=== PATIENT | female | born 1995 | race Caucasian/White ===

== ENCOUNTER 2021-06-16 19:14 | Emergency (ER) | payer BC ==
[~2021-06-16] VITALS: Ht 162.6 cm; Wt 77.1 kg
[2021-06-16 19:34] VITALS: BP 131/75
--- NOTE | 2021-06-16 19:37 | NUR ---
TO LOBBY A/W BED AMBULATORY
[2021-06-16 20:05] VITALS: BP 131/75
[2021-06-16] MEDS ORDERED: PROM118S5 PO (20:24)
[2021-06-16] MEDS ORDERED: AZIT250T4 PO (20:24)
[2021-06-16] MEDS ORDERED: PRED20TA5 PO (20:24)
--- NOTE | 2021-06-16 20:27 | NUR ---
Patient discharged with v/s stable. Written and verbal after care instructions ABOUT COUGH AND ACUTE BRONCHITIS given and explained. Patient alert, oriented and verbalized understanding of instructions. Ambulatory with steady gait. All questions addressed prior to discharge. ID band removed. Patient advised to follow up with PMD. Rx of ZITHROMAX, PREDNISONE, AND PROMETHAZINE DM SYRUP given. Patient educated on indication of medication including possible reaction and side effects. Opportunity to ask questions provided and answered.
== END 2021-06-16 20:27 | disposition home or self-care (01) ==
LOC: MED 19:14
DX: J20.9 Acute bronchitis, unspecified (principal)
CPT/HCPCS: 71045; 99283